=== PATIENT | female | born 1945 | race Caucasian/White ===

== ENCOUNTER → 2017-08-29 | Day surgery (SDC) | payer OTHER ==
[~2017-08-29] MED LIST: BUPIVACAINE/EPINEPHRINE 0.5% PF 10 ML VIAL ONE; HEPARIN SODIUM - IV 10,000 UNITS/10 ML VIAL ONE; KETOROLAC TROMETHAMINE 30 MG/ML (IVP) VIAL ONE; LORT5TAB PO; MIDAZOLAM HCL 2 MG/2 ML VIAL ONE; ONDANSETRON HCL 4 MG/2 ML VIAL IV PUSH ONE; OXYC-360 PO; PROPOFOL 200 MG/20 ML AMP IV ONE; SODIUM CHLORIDE 0.9% 20 ML VIAL ONE; Z.0.NO CURRENT MEDS; ceFAZolin 2 GM PREMIX 50 ML ONE
--- NOTE | 2017-08-29 10:38 | TN ---
cc: GAYATHRI HINKLE DATE OF SURGERY 08/29/2017 PREOPERATIVE DIAGNOSIS Stage III right breast cancer. POSTOPERATIVE DIAGNOSIS Stage III right breast cancer. PROCEDURE PERFORMED Left subclavian port placement. SURGEON Gayathri Hinkle MD ANESTHESIA General via LMA device. INDICATION The patient is a 72-year-old female with a pathological stage III right breast cancer which was 9 cm in size and node positive. She now presents for Gierbf-A-Cpal placement to facilitate adjuvant chemotherapy. FINDINGS AT THE TIME OF SURGERY Normal left subclavian anatomy was noted. PROCEDURE PERFORMED After informed consent was obtained and site verification was performed, the patient was brought to the major operating room where she was given a single dose of IV Ancef and sequential compression hose were placed. The left and right chest and neck were prepped and draped in a sterile fashion and she was placed in Trendelenburg position. She was given 0.5% Marcaine with epinephrine to infiltrate the left infraclavicular area. The left subclavian vein was accessed via percutaneous cannulation and a J-wire was advanced into the central circulation via the Seldinger technique where its position was confirmed with fluoroscopy. Further sharp and electrocautery dissection was performed to create a subcutaneous pocket around the reservoir. The catheter was measured out at 25 cm and cut off. A peel-away sheath and introducer were advanced under fluoroscopic guidance into the central circulation and the introducer and wire were removed. The catheter advanced easily through the peel-away sheath which was then removed and there was good position of the catheter tip at 19 cm by fluoroscopy. The catheter was cut off at this point and secured to the reservoir which was noted to flush and aspirate easily. The catheter was secured to the chest wall with interrupted Prolene sutures and the overlying skin was secured using interrupted 3-0 Vicryl subcutaneous sutures and a 4-0 Monocryl subcuticular suture. Steri-Strips and sterile dressing were applied. The patient tolerated the procedure well with minimal blood loss and she was brought to recovery room in good condition where a chest x-ray is pending at the time of dictation. MD FRANSISCO Haywood/HORTENCIA /10:10 AM 10:22 AM
== END | disposition home or self-care (01) ==
LOC: ESDC 07:31
PROVIDERS: ATTEND Surgery
DX: Z45.2 Encounter for adjustment and management of vascular access device (principal); C50.911 Malignant neoplasm of unspecified site of right female breast
CPT/HCPCS: 00532; 36561; 76000; C1788; J0690; J1644; J1885; J2250; J2405; J3010